=== PATIENT | male | born 1995 | race Caucasian/White ===

== ENCOUNTER 2017-04-27 20:42 | Emergency (ER) | payer SELFPAY ==
--- NOTE | 2017-04-27 21:11 | EDM.PDOC ---
ED HPI GENERAL MEDICAL PROBLEM - General Chief Complaint: Skin Complaint Stated Complaint: POSS LUMP ON HIP Time Seen by Provider: 04/27/17 20:48 Source of Information: Reports: Patient History Limitations: Reports: No Limitations - History of Present Illness INITIAL COMMENTS - FREE TEXT/NARRATIVE: This is a 21-year-old male. He noted this evening that he was having some pain in his right groin and a small lump. He has not been having any sort of fever or chills. He denies any discharge from his penis. He denies any painless ulceration on his penis or his testicles. He denies any testicle symptoms. He does shave his privates and he does have a slight folliculitis in the left groin area. He denies any other acute symptoms and the pain just started this evening. Right Groin Pain Score (Numeric/FACES): 2 - Related Data Allergies Allergy/AdvReac Type Severity Reaction Status Date / Time No Known Allergies Allergy Verified 04/27/17 20:53 Home Meds: Home Meds Doxycycline [Vibramycin] 100 mg PO Q12HR #14 cap 04/27/17 [Rx] ED ROS GENERAL - Review of Systems Review Of Systems: See Below Constitutional: Denies: Fever, Chills HEENT: Reports: No Symptoms Respiratory: Reports: No Symptoms Cardiovascular: Reports: No Symptoms Endocrine: Reports: No Symptoms GI/Abdominal: Reports: No Symptoms : Denies: Discharge, Dysuria, Pain Musculoskeletal: Reports: No Symptoms Skin: Reports: Other (As per history of present illness) Neurological: Reports: No Symptoms Psychiatric: Reports: No Symptoms Hematologic/Lymphatic: Reports: No Symptoms ED EXAM, SKIN/RASH Exam: See Below Exam Limited By: No Limitations General Appearance: Alert, WD/WN, No Apparent Distress Eye Exam: Bilateral Eye: Normal Inspection Ears: Normal External Exam Nose: Normal Inspection Throat/Mouth: Normal Inspection, Normal Lips, Normal Voice Head: Normocephalic Neck: Supple Respiratory/Chest: No Respiratory Distress (Male) Exam: No Hernia, Other (In the right inguinal area there is tenderness and a minimal lymph node lump noted, he has shaved in that area and there is a few hairs look like it has beginning folliculitis, there are no testicle lesions no penile lesions noted there is no marked lymphadenopathy or redness in the inguinal and groin area). No: Penile Lesions, Urethral Discharge Back Exam: Full Range of Motion Extremities: Normal Inspection, Normal Range of Motion Neurological: Alert, Oriented Psychiatric: Normal Affect, Normal Mood Skin: Warm, Dry, Other (In the right groin region he does appear to have a mild folliculitis starting where he is shaved the hair) Location, Skin: Groin Associated features: Tenderness. No: Warmth, Swelling, Induration, Lymphangitis Lymphatic: Other (Very minimal lymphadenopathy) Course - Vital Signs Last Recorded V/S: Last Vital Signs Temp 98.8 F 04/27/17 20:54 Pulse 83 04/27/17 20:54 Resp 18 04/27/17 20:54 BP 128/72 04/27/17 20:54 Pulse Ox 100 04/27/17 20:54 Departure - Departure Time of Disposition: 21:09 Disposition: Home, Self-Care 01 Condition: Good Clinical Impression: Right groin pain, Folliculitis, Inguinal lymphadenitis - Discharge Information Prescriptions: Doxycycline [Vibramycin] 100 mg PO Q12HR #14 cap Referrals: PCP,None [Primary Care Provider] - Additional Instructions: You need to gently wash that area daily and any sort of little pimples you notice do not squeeze them or pop them but just scrap the heads off so you don' t spread the infection, do not shave the groin area until the infection is resolved and the pain has resolved, if there is marked worsening of your symptoms especially marked swelling or marked redness in the right groin area or you develop a fever or chills return to the ER immediately or follow-up with your family doctor, return to the ER if needed
== END 2017-04-27 21:25 | disposition home or self-care (01) ==
LOC: JD.ED 20:42
DX: I88.9 Nonspecific lymphadenitis, unspecified (principal); L73.9 Follicular disorder, unspecified
CPT/HCPCS: 99283

== ENCOUNTER 2022-04-04 17:49 | Emergency (ER) | payer SELFPAY ==
[2022-04-04] MEDS ORDERED: Penicillin G Benzathine 1,200,000 Units/2 ML Syringe IM ONE (18:30)
[2022-04-04] MEDS ORDERED: HYDROmorphone 0.5 MG/0.5 ML Syringe IM ONE (18:31)
[2022-04-04] MEDS ORDERED: Dexamethasone 10 MG/ML SDV IM ONE (18:31)
[2022-04-04 18:51] LABS: STREP A BY PCR NOT DETECTED (NOT DETECT)
[2022-04-04 19:03] LABS: CORONAVIRUS COVID-19 NAA NEGATIVE (NEGATIVE)
[2022-04-04] MEDS ORDERED: Ketorolac 60 MG/2 ML SDV IM ONE (19:46)
== END 2022-04-04 20:45 | disposition home or self-care (01) ==
LOC: JD.ED 17:49
DX: J03.90 Acute tonsillitis, unspecified (principal); Z86.16 Personal history of COVID-19; Z20.822 Contact with and (suspected) exposure to COVID-19
CPT/HCPCS: 0240U; 87651; 96372; 99283; J0561; J1100; J1170; J1885

== ENCOUNTER 2023-05-01 21:35 | Emergency (ER) | payer BC | END 2023-05-01 23:31 | disposition home or self-care (01) | LOC: JD.ED 21:35 | DX: M79.672 Pain in left foot (principal); Z86.16 Personal history of COVID-19; W23.1XXA Caught, crushed, jammed, or pinched between stationary objects, initial encounter | CPT/HCPCS: 73630-26-LT; 73630-LT; 99283 ==